=== PATIENT | female | born 1965 | race Caucasian/White ===

== ENCOUNTER 2017-05-30 12:37 | Emergency (ER) | payer SELFPAY ==
[2017-05-30 14:34] LABS: APPEARANCE CLEAR (CLEAR); BILIRUBIN NEGATIVE (NEGATIVE); COLOR YELLOW (YELLOW); GLUCOSE NEGATIVE (NEGATIVE); KETONE NEGATIVE (NEGATIVE); LEUKOCYTE ESTERASE NEGATIVE (NEGATIVE); NITRITE NEGATIVE (NEGATIVE); PROTEIN NEGATIVE (NEGATIVE); UROBILINOGEN NORMAL (NORMAL)
[2017-05-30 14:43] LABS: HCG SERUM NEGATIVE (NEGATIVE)
[2017-05-30 14:46] LABS: BASOPHILS 0.2 % (0-2); EOSINOPHILS 1.1 % (0-7); HEMATOCRIT 41.8 % (36.0-48.0); HEMOGLOBIN 14.6 g/dL (12-16); IMMATURE GRANULOCYTES 0.2 % (0-5); LYMPHOCYTES 24.1 % (15-50); MCH 34.3 pg (26.0-34.0); MCHC 34.9 g/dL (31.0-37.0); MCV 98.1 fL (80.0-100.0); MEAN PLATELET VOLUME 9.6 fL (7.4-10.4); MONOCYTES 4.7 % (2-11); NEUTROPHILS 69.7 % (40-80); RBC 4.26 10x6/uL (4.00-5.40); RDW 11.7 % (11.5-14.5)
[2017-05-30 14:48] LABS: PLATELET COUNT 249 10x3/uL (130-400)
[2017-05-30 14:49] LABS: ALBUMIN 3.9 g/dL (3.4-5.0); ALKALINE PHOSPHATASE 83 U/L (46-116); ALT (SGPT) 33 U/L (10-68); BILIRUBIN - TOTAL 0.62 mg/dL (0.2-1.3); CALC OSMOLALITY 284 mosm/kg (275-300); CALCIUM 8.8 mg/dL (8.5-10.1); CARBON DIOXIDE 22.9 mmol/L (21.0-32.0); CHLORIDE - SERUM 108 mmol/L (98-107); CREATININE - SERUM 0.8 mg/dL (0.6-1.3); GLUCOSE 91 mg/dL (74-106); POTASSIUM - SERUM 3.6 mmol/L (3.5-5.1); PROTEIN - SERUM 7.1 g/dL (6.4-8.2); SODIUM 144 mmol/L (136-145); UREA NITROGEN 7 mg/dL (7-18); eGFR NON AFRICAN AMERICAN 81 mL/min (90-120)
[2017-05-30 14:56] LABS: UDS - AMPHET NEGATIVE QUAL (NEGATIVE); UDS - BARB NEGATIVE QUAL (NEGATIVE); UDS - BENZO NEGATIVE QUAL (NEGATIVE); UDS - COCAINE NEGATIVE QUAL (NEGATIVE); UDS - METH NEGATIVE QUAL (NEGATIVE); UDS - OPIATE NEGATIVE QUAL (NEGATIVE); UDS - PCP NEGATIVE QUAL (NEGATIVE); UDS - THC POSITIVE QUAL (NEGATIVE)
== END 2017-05-30 20:00 | disposition short-term general hospital (02) ==
LOC: D.ER 12:37
PROVIDERS: Emergency Medicine
DX: F41.0 Panic disorder [episodic paroxysmal anxiety] (principal); F17.200 Nicotine dependence, unspecified, uncomplicated

== ENCOUNTER 2017-06-28 17:00 | Emergency (ER) | payer MEDICAID ==
[2017-06-28 18:03] LABS: BASOPHILS 0.3 % (0-2); EOSINOPHILS 2.2 % (0-7); HEMATOCRIT 43.8 % (36.0-48.0); HEMOGLOBIN 15.4 g/dL (12-16); IMMATURE GRANULOCYTES 0.1 % (0-5); LYMPHOCYTES 36.6 % (15-50); MCH 34.1 pg (26.0-34.0); MCHC 35.2 g/dL (31.0-37.0); MCV 96.9 fL (80.0-100.0); MEAN PLATELET VOLUME 9.5 fL (7.4-10.4); MONOCYTES 6.3 % (2-11); NEUTROPHILS 54.5 % (40-80); PLATELET COUNT 216 10x3/uL (130-400); RBC 4.52 10x6/uL (4.00-5.40); RDW 11.4 % (11.5-14.5); WBC 10.1 10x3/uL (4.8-10.8)
[2017-06-28 18:13] LABS: APPEARANCE HAZY (CLEAR); BILIRUBIN NEGATIVE (NEGATIVE); COLOR YELLOW (YELLOW); GLUCOSE NEGATIVE (NEGATIVE); KETONE NEGATIVE (NEGATIVE); NITRITE NEGATIVE (NEGATIVE); PROTEIN NEGATIVE (NEGATIVE); UROBILINOGEN NORMAL (NORMAL)
[2017-06-28 18:20] LABS: ALBUMIN 4.2 g/dL (3.4-5.0); ANION GAP 16.3 mmol/L (8-16); BILIRUBIN - TOTAL 0.67 mg/dL (0.2-1.3); CALCIUM 9.2 mg/dL (8.5-10.1); CREATININE - SERUM 0.9 mg/dL (0.6-1.3); POTASSIUM - SERUM 3.3 mmol/L (3.5-5.1); PROTEIN - SERUM 7.7 g/dL (6.4-8.2)
[2017-06-28 18:21] LABS: EPITHELIAL CELLS 0-5 /hpf (0-5); RED CELLS - URINE 0-5 /hpf (0-5); WHITE CELLS - URINE 0-5 /hpf (0-5)
[2017-06-28 18:22] LABS: BACTERIA FEW /hpf (NONE SEEN)
== END 2017-06-28 20:40 | disposition home or self-care (01) ==
LOC: D.ER 17:00
PROVIDERS: Emergency Medicine
DX: E86.0 Dehydration (principal); R53.1 Weakness; F17.200 Nicotine dependence, unspecified, uncomplicated

== ENCOUNTER → 2018-01-02 16:32 | Outpatient (CLI) | payer MEDICAID | END | disposition home or self-care (01) | LOC: D.MAMMO 09:45 | DX: Z12.31 Encounter for screening mammogram for malignant neoplasm of breast (principal) ==

== ENCOUNTER 2018-05-19 08:00 | Outpatient (CLI) | payer MEDICAID | END 2018-05-19 09:00 | disposition home or self-care (01) | LOC: D.MAMMO 08:00 | DX: R92.8 Other abnormal and inconclusive findings on diagnostic imaging of breast (principal) ==

== ENCOUNTER → 2018-06-26 16:17 | Outpatient (CLI) | payer MEDICAID ==
[~2018-06-26 16:17] MED LIST: LUNESTA2 M1 PO; ZANTAC300 MG PO; ZOLOFT25 MG PO
[2018-07-31 07:52] VITALS: BMI 20.1
== END | disposition home or self-care (01) ==
LOC: D.MAMMO 08:00
DX: R92.2 Inconclusive mammogram (principal)

== ENCOUNTER 2018-07-31 06:45 | Day surgery (SDC) | payer MEDICAID ==
[2018-07-30 17:00] LABS: ANION GAP 17.1 mmol/L (8-16); CALCIUM 8.8 mg/dL (8.5-10.1); CARBON DIOXIDE 25.8 mmol/L (21.0-32.0); CREATININE - SERUM 0.9 mg/dL (0.6-1.3); POTASSIUM - SERUM 3.9 mmol/L (3.5-5.1)
[2018-07-30 17:04] LABS: BASOPHILS 0.3 % (0-2); EOSINOPHILS 3.3 % (0-7); HEMATOCRIT 39.6 % (36.0-48.0); HEMOGLOBIN 13.5 g/dL (12-16); IMMATURE GRANULOCYTES 0.1 % (0-5); LYMPHOCYTES 49.2 % (15-50); MCH 33.8 pg (26.0-34.0); MCHC 34.1 g/dL (31.0-37.0); MEAN PLATELET VOLUME 9.3 fL (7.4-10.4); MONOCYTES 6.5 % (2-11); NEUTROPHILS 40.6 % (40-80); RDW 11.8 % (11.5-14.5); WBC 9.4 10x3/uL (4.8-10.8)
[2018-07-30 17:08] LABS: PLATELET COUNT 297 10x3/uL (130-400)
[~2018-07-31] VITALS: Ht 156.2 cm; Wt 49.0 kg
--- NOTE | ~2018-07-31 | OP ---
PATIENT NAME: SENDY GALINDO MEDICAL RECORD: [id number] :69 LOCATION:D.OPS ADMISSION DATE: SURGEON: CHRISTI TREVINO MD DATE OF OPERATION: 07/31/2018 PREOPERATIVE DIAGNOSES: 1. Right breast microcalcifications. 2. Fibromyalgia. 3. History of cerebrovascular accident. POSTOPERATIVE DIAGNOSES: 1. Right breast microcalcifications. 2. Fibromyalgia. 3. History of cerebrovascular accident. PROCEDURE: Right breast needle localization lumpectomy. SURGEON: Christi Trevino MD REPORT OF PROCEDURE: The patient's right breast was prepped and draped in sterile fashion. The patient had had a needle localization performed preoperatively. A skin incision was made on the right upper outer quadrant of the breast. Electrocautery was then used to dissect through the subcutaneous tissues and the wire was eviscerated through this incision. A core of tissue was then taken around this wire all the way down to the posterior breast overlying the pectoral fascia. Once this was completely excised, then the specimen was marked appropriately and sent off to radiology. A mammographic evaluation showed that the calcifications were present in the specimen along with the intact wire. We inspected the wound bed and any bleeding that was found was treated with electrocautery. We then irrigated out the wound with normal saline. The subcutaneous tissues were reapproximated with interrupted 3-0 Vicryls and the skin was closed with running subcutaneous 5-0 Monocryl. COMPLICATIONS: None. CONDITION: Stable. ANESTHESIA: General endotracheal and local. BLOOD LOSS: Minimal. TRANSINT:[id number] Voice Confirmation ID: [id number] DOCUMENT ID: [id number] CHRISTI TREVINO MD at 1219 CC: YARIEL LARRY MD [id number] DICTATION DATE: 07/31/18 1404 MIXING OPERATOR: 07/31/18 1521 [facility] 07/31/18 [place] [id number]
[2018-07-31 07:52] VITALS: BP 103/55; Ht 156.2 cm; Wt 49.0 kg
[2018-07-31] MEDS ORDERED: NORCO 10-325 TA1 TAB PO (14:09)
== END 2018-07-31 16:25 | disposition home or self-care (01) ==
LOC: D.OPS 06:45 → D.PAN 10:00 → D.OPS 11:30 → D.PAN 11:30 → D.OPS 16:25
PROVIDERS: Surgery
DX: R92.0 Mammographic microcalcification found on diagnostic imaging of breast (principal); M79.7 Fibromyalgia; Z86.73 Personal history of transient ischemic attack (TIA), and cerebral infarction without residual deficits; Z01.812 Encounter for preprocedural laboratory examination

== ENCOUNTER 2018-09-07 09:28 | Inpatient (IN) | payer MEDICAID ==
[~2018-09-07] VITALS: Ht 156.2 cm; Wt 45.3 kg
--- NOTE | ~2018-09-07 | MORECARE ---
CASE MANAGEMENT DISCHARGE SUMMARY PATIENT: SENDY GALINDO UNIT: [id number] ADM DATE: 09/07/18 AGE: 53 : [birth year] SEX: F ROOM/BED: D.2666 AUTHOR: ALE TURNER PHYSICIAN: REFERRING PHYSICIAN: CORENLIA MARIE MD DATE OF SERVICE: 09/10/18 Discharge Plan Patient Name: SENDY GALINDO Facility: [facility]:[place] : 1965 Planned Disposition: Home Anticipated Discharge Date: 09/10/18 Discharge Date: 09/10/2018 Expected LOS: 3 Initial Reviewer: [email or web address] Initial Review Date: 09/10/2018 Generated: 09/10/18 6:35 pm Comments DCP- Discharge Planning Updated by [email or web address]: Bishop López on 09/10/18 4:[address] Patient Name: SENDY GALINDO Encounter No: [id number] : 1965 Primary Insurance: [employer] OPT[employer] [place] Anticipated DC Date: 09-10-2018 Planned Disposition: Home DISCHARGE PLANNING NOTE: CM MET WITH PT IN ROOM TO DISCUSS DISCHARGE PLANNING AND NEEDS. PT REPORTS LIVING AT HOME INDEPENDENTLY WITH HER ADULT DAUGHTER. PT HAS NEBULIZER WITH NO MEDICAL EQUIPMENT PROVIDER PREFERENCE AND NO OUTSIDE SERVICES ASSISTING IN THE HOME. CM DISCUSSED AVAILABILITY OF HOME HEALTH, REHAB SERVICES AND MEDICAL EQUIPMENT. PT DENIES DISCHARGE NEEDS, REPORTS HER DAUGHTER WILL PICK HER UP FOR DISCHARGE HOME. SOLUTION PROFESSIONAL NURSE NOTIFIED. BISHOP LÓPEZ, CASE MANAGEMENT DCPIA - Discharge Planning Initial Assessment Updated by [email or web address]: Bishop López on 09/10/18 5:30 pm * Is the patient Alert and Oriented? Yes * How many steps to enter\exit or inside your home? RAMP * PCP DR. LARRY * Pharmacy [facility] * Preadmission Environment Home with Family * ADLs Independent * Equipment Nebulizer * Other Equipment NO MEDICAL EQUIPMENT PROVIDER PREFERENCE * List name and contact numbers for known caregivers / representatives who currently or will assist patient after discharge: RUSSEL GALINDO, DTR, * Verbal permission to speak to the caregivers and representatives has been obtained from the patient. N/A * Community resources currently utilized None * Please name any agencies selected above. NONE * Additional services required to return to the preadmission environment? No * Can the patient safely return to the preadmission environment? Yes * Has this patient been hospitalized within the prior 30 days at any hospital? No Patient Name: SENDY GALINDO Page [id number] at 1735 All edits/amendments must be made on the electronic document DICTATION DATE: 09/10/181733 METAL PICKLING EQUIPMENT OPERATOR: JOHN 09/10/181733 RPT#: [id number] DC DATE:09/10/18 STATUS: DIS IN [facility] [address] [place] [address] END OF REPORT
[~2018-09-07 09:28] MED LIST changes: +NORCO 10-325 TA1 TAB PO
[2018-09-07 10:09] LABS: BASOPHILS 0.3 % (0-2); EOSINOPHILS 2.3 % (0-7); HEMATOCRIT 36.7 % (36.0-48.0); HEMOGLOBIN 12.3 g/dL (12-16); LYMPHOCYTES 47.1 % (15-50); MCHC 33.5 g/dL (31.0-37.0); MCV 98.4 fL (80.0-100.0); MEAN PLATELET VOLUME 9.3 fL (7.4-10.4); MONOCYTES 4.4 % (2-11); NEUTROPHILS 45.9 % (40-80); PLATELET COUNT 312 10x3/uL (130-400); RBC 3.73 10x6/uL (4.00-5.40); RDW 11.8 % (11.5-14.5); WBC 6.2 10x3/uL (4.8-10.8)
[2018-09-07 10:22] LABS: ALBUMIN 3.3 g/dL (3.4-5.0); ANION GAP 17.4 mmol/L (8-16); BILIRUBIN - TOTAL 0.35 mg/dL (0.2-1.3); CALCIUM 8.8 mg/dL (8.5-10.1); CREATININE - SERUM 0.9 mg/dL (0.6-1.3); POTASSIUM - SERUM 3.4 mmol/L (3.5-5.1); PROTEIN - SERUM 7.5 g/dL (6.4-8.2)
[2018-09-07 10:35] LABS: APPEARANCE CLEAR (CLEAR); BILIRUBIN NEGATIVE (NEGATIVE); COLOR YELLOW (YELLOW); GLUCOSE NEGATIVE (NEGATIVE); KETONE NEGATIVE (NEGATIVE); NITRITE NEGATIVE (NEGATIVE); PROTEIN NEGATIVE (NEGATIVE); SPECIFIC GRAVITY 1.025 (1.005-1.020); UROBILINOGEN NORMAL (NORMAL)
[2018-09-07 10:36] LABS: BACTERIA FEW /hpf (NONE SEEN); EPITHELIAL CELLS 0-5 /hpf (0-5); RED CELLS - URINE 0-5 /hpf (0-5); WHITE CELLS - URINE 0-5 /hpf (0-5)
[2018-09-07 13:30] VITALS: BP 108/62; Ht 156.2 cm; Wt 45.3 kg
[2018-09-07 17:00] VITALS: BP 88/51
[2018-09-08] VITALS: BP 100/52
[2018-09-08 05:51] VITALS: BP 103/65
[2018-09-08 06:02] LABS: BASOPHILS 0.4 % (0-2); EOSINOPHILS 2.8 % (0-7); HEMATOCRIT 34.7 % (36.0-48.0); HEMOGLOBIN 11.4 g/dL (12-16); IMMATURE GRANULOCYTES 0.2 % (0-5); LYMPHOCYTES 46.7 % (15-50); MCH 32.8 pg (26.0-34.0); MCHC 32.9 g/dL (31.0-37.0); MCV 99.7 fL (80.0-100.0); MEAN PLATELET VOLUME 9.5 fL (7.4-10.4); MONOCYTES 7.5 % (2-11); NEUTROPHILS 42.4 % (40-80); PLATELET COUNT 330 10x3/uL (130-400); RBC 3.48 10x6/uL (4.00-5.40); WBC 5.1 10x3/uL (4.8-10.8)
[2018-09-08 06:21] LABS: ALBUMIN 3.1 g/dL (3.4-5.0); ALKALINE PHOSPHATASE 64 U/L (46-116); ALT (SGPT) 9 U/L (10-68); BILIRUBIN - TOTAL 0.28 mg/dL (0.2-1.3); CALC OSMOLALITY 281 mosm/kg (275-300); CALCIUM 8.9 mg/dL (8.5-10.1); CARBON DIOXIDE 24.5 mmol/L (21.0-32.0); CHLORIDE - SERUM 108 mmol/L (98-107); CREATININE - SERUM 0.8 mg/dL (0.6-1.3); GLUCOSE 88 mg/dL (74-106); MAGNESIUM - SERUM 2.1 mg/dL (1.8-2.4); POTASSIUM - SERUM 4.2 mmol/L (3.5-5.1); PROTEIN - SERUM 6.8 g/dL (6.4-8.2); SODIUM 142 mmol/L (136-145); UREA NITROGEN 12 mg/dL (7-18); eGFR NON AFRICAN AMERICAN 80 mL/min (90-120)
[2018-09-08 08:58] VITALS: BP 89/46
[2018-09-08 11:39] VITALS: BP 94/43
[2018-09-08 14:18] LABS: % SATURATION 21 % (15-55); IRON 49 ug/dl (35-150); TOTAL IRON BIND CAPACITY 231 ug/dl (260-445); UNSAT IRON BIND CAPACITY 182 ug/dl (150-375)
[2018-09-08 15:33] VITALS: BP 86/41
[2018-09-08 20:00] VITALS: BP 94/52
[2018-09-09] VITALS: BP 97/46
[2018-09-09 05:37] LABS: BASOPHILS 0 % (0-2); EOSINOPHILS 0 % (0-7); HEMATOCRIT 34.5 % (36.0-48.0); HEMOGLOBIN 11.4 g/dL (12-16); IMMATURE GRANULOCYTES 0.2 % (0-5); LYMPHOCYTES 14.8 % (15-50); MCH 32.9 pg (26.0-34.0); MCV 99.4 fL (80.0-100.0); MEAN PLATELET VOLUME 9.7 fL (7.4-10.4); PLATELET COUNT 335 10x3/uL (130-400); RBC 3.47 10x6/uL (4.00-5.40); RDW 12.1 % (11.5-14.5)
[2018-09-09 06:04] LABS: ALBUMIN 3.2 g/dL (3.4-5.0); ALKALINE PHOSPHATASE 65 U/L (46-116); ALT (SGPT) 10 U/L (10-68); BILIRUBIN - TOTAL 0.18 mg/dL (0.2-1.3); CALCIUM 9.3 mg/dL (8.5-10.1); CARBON DIOXIDE 21.3 mmol/L (21.0-32.0); CHLORIDE - SERUM 107 mmol/L (98-107); CREATININE - SERUM 0.8 mg/dL (0.6-1.3); MAGNESIUM - SERUM 1.9 mg/dL (1.8-2.4); POTASSIUM - SERUM 4.4 mmol/L (3.5-5.1); PROTEIN - SERUM 7.3 g/dL (6.4-8.2); SODIUM 141 mmol/L (136-145); eGFR NON AFRICAN AMERICAN 80 mL/min (90-120)
[2018-09-09 06:22] LABS: CALC OSMOLALITY 285 mosm/kg (275-300); GLUCOSE 144 mg/dL (74-106); UREA NITROGEN 17 mg/dL (7-18)
[2018-09-09 08:13] VITALS: BP 96/44
[2018-09-09 11:57] VITALS: BP 107/44
[2018-09-09 16:16] VITALS: BP 100/48
[2018-09-09 21:09] VITALS: BP 99/49
[2018-09-10 04:00] VITALS: BP 102/48
[2018-09-10 05:25] LABS: BASOPHILS 0 % (0-2); EOSINOPHILS 0 % (0-7); HEMATOCRIT 34.9 % (36.0-48.0); HEMOGLOBIN 11.4 g/dL (12-16); IMMATURE GRANULOCYTES 0.4 % (0-5); LYMPHOCYTES 8.2 % (15-50); MCH 32.6 pg (26.0-34.0); MCHC 32.7 g/dL (31.0-37.0); MCV 99.7 fL (80.0-100.0); MEAN PLATELET VOLUME 9.5 fL (7.4-10.4); MONOCYTES 2.5 % (2-11); NEUTROPHILS 88.9 % (40-80); PLATELET COUNT 376 10x3/uL (130-400); RDW 12.2 % (11.5-14.5)
[2018-09-10 05:39] LABS: WBC 16.6 10x3/uL (4.8-10.8)
[2018-09-10 05:42] LABS: ALBUMIN 3.4 g/dL (3.4-5.0); ALKALINE PHOSPHATASE 65 U/L (46-116); ALT (SGPT) 11 U/L (10-68); BILIRUBIN - TOTAL 0.39 mg/dL (0.2-1.3); CALC OSMOLALITY 286 mosm/kg (275-300); CALCIUM 9.5 mg/dL (8.5-10.1); CARBON DIOXIDE 22.8 mmol/L (21.0-32.0); CHLORIDE - SERUM 107 mmol/L (98-107); CREATININE - SERUM 0.8 mg/dL (0.6-1.3); GLUCOSE 121 mg/dL (74-106); MAGNESIUM - SERUM 2.1 mg/dL (1.8-2.4); POTASSIUM - SERUM 4.9 mmol/L (3.5-5.1); PROTEIN - SERUM 7.6 g/dL (6.4-8.2); SODIUM 142 mmol/L (136-145); UREA NITROGEN 21 mg/dL (7-18); eGFR NON AFRICAN AMERICAN 80 mL/min (90-120)
[2018-09-10] MEDS ORDERED: OMNICEF300 MG PO (08:38)
[2018-09-10] MEDS ORDERED: ZITHROMAX500 MG PO (08:38)
[2018-09-10] MEDS ORDERED: VENTOLIN HFA18 GM INH (08:39)
[2018-09-10] MEDS ORDERED: PROTONIX40 MG PO (08:39)
[2018-09-10] MEDS ORDERED: STERAPRED DS 1010 MG PO (08:40)
[2018-09-10 09:00] VITALS: BP 92/54
== END 2018-09-10 11:07 | disposition home or self-care (01) | DRG 194 ==
LOC: D.ER 09:28 → D.EDHOLD 11:11 → D.M2 11:11
PROVIDERS: Emergency Medicine; Family Medicine Adult Medicine; Internal Medicine Nephrology
DX: J18.1 Lobar pneumonia, unspecified organism (principal); F17.213 Nicotine dependence, cigarettes, with withdrawal; D64.9 Anemia, unspecified; E87.6 Hypokalemia; F41.9 Anxiety disorder, unspecified; F32.9 Major depressive disorder, single episode, unspecified

== ENCOUNTER 2019-03-02 22:00 | Emergency (ER) | payer MEDICAID ==
[~2019-03-02 22:00] MED LIST changes: +OMNICEF300 MG PO; +PROTONIX40 MG PO; +STERAPRED DS 1010 MG PO; +VENTOLIN HFA18 GM INH; +ZITHROMAX500 MG PO
[2019-03-02 22:02] VITALS: BMI 20.3
[2019-03-02] MEDS ORDERED: KLONOPIN1 MG PO (22:14)
[2019-03-02] MEDS ORDERED: REMERON15 MG PO (22:14)
[2019-03-02] MEDS ORDERED: ZOLOFT100 MG PO (22:14)
[2019-03-02] MEDS ORDERED: VALTREX500 MG PO (22:15)
[2019-03-02 22:37] LABS: BASOPHILS 0.4 % (0-2); EOSINOPHILS 2.5 % (0-7); HEMATOCRIT 38.5 % (36.0-48.0); HEMOGLOBIN 13.1 g/dL (12-16); IMMATURE GRANULOCYTES 0.1 % (0-5); LYMPHOCYTES 43.9 % (15-50); MCH 33.2 pg (26.0-34.0); MCV 97.7 fL (80.0-100.0); MEAN PLATELET VOLUME 9.2 fL (7.4-10.4); MONOCYTES 5.2 % (2-11); NEUTROPHILS 47.9 % (40-80); RBC 3.94 10x6/uL (4.00-5.40); WBC 8.1 10x3/uL (4.8-10.8)
[2019-03-02 22:52] LABS: APTT 29.5 SECONDS (22.8-39.4); INR 1.07 (0.85-1.17); PROTIME 13.4 SECONDS (11.6-15.0)
[2019-03-02 22:55] LABS: PLATELET COUNT 272 10x3/uL (130-400)
[2019-03-02 23:08] LABS: ALBUMIN 3.7 g/dL (3.4-5.0); ALKALINE PHOSPHATASE 101 U/L (46-116); ALT (SGPT) 19 U/L (10-68); BILIRUBIN - TOTAL 0.32 mg/dL (0.2-1.3); CALC OSMOLALITY 276 mosm/kg (275-300); CALCIUM 8.8 mg/dL (8.5-10.1); CARBON DIOXIDE 26.9 mmol/L (21.0-32.0); CHLORIDE - SERUM 106 mmol/L (98-107); CREATININE - SERUM 0.9 mg/dL (0.6-1.3); GLUCOSE 102 mg/dL (74-106); POTASSIUM - SERUM 3.6 mmol/L (3.5-5.1); PROTEIN - SERUM 7.4 g/dL (6.4-8.2); SODIUM 139 mmol/L (136-145); UREA NITROGEN 11 mg/dL (7-18); eGFR NON AFRICAN AMERICAN 70 mL/min (90-120)
[2019-03-02 23:19] LABS: CKMB 0.3 U/L (0.0-3.6); CREATINE KINASE 54 UL (21-215); MAGNESIUM - SERUM 2.1 mg/dL (1.8-2.4); TROPONIN-I < 0.017 ng/mL (0.000-0.060)
[2019-03-03 00:17] LABS: C-REACTIVE PROTEIN 0.5 mg/dL (0.0-0.9); THYROID STIMULATING HORMONE 3.09 uIU/mL (0.36-3.74)
[2019-03-03 01:12] VITALS: BP 96/62
== END 2019-03-03 01:12 | disposition home or self-care (01) ==
LOC: D.ER 22:00
PROVIDERS: Family Medicine
DX: R53.1 Weakness (principal); M25.532 Pain in left wrist; M25.531 Pain in right wrist; R53.81 Other malaise

== ENCOUNTER 2019-03-08 15:43 | Observation (INO) | payer MEDICAID ==
[~2019-03-08] VITALS: Ht 156.2 cm; Wt 47.2 kg
[2019-03-08] VITALS (8 sets, daily range): BP systolic 90–123; BP diastolic 46–64; BMI 19.4
[~2019-03-08 15:43] MED LIST changes: +KLONOPIN1 MG PO; +REMERON15 MG PO; +VALTREX500 MG PO; +ZOLOFT100 MG PO
--- NOTE | 2019-03-08 15:52 | NUR ---
POSION CONTROL NOTIFIED AT 5252. INSTRUCTED TO MONITOR PT AIRWAY, VITAL SIGNS,
--- NOTE | 2019-03-08 16:12 | NUR ---
SCREENER AWARE OF PT.
--- NOTE | 2019-03-08 16:15 | NUR ---
DR. ALVAREZ AND 1:1 SITTER OBSERVATION ORDERED. SITTER AT BEDSIDE. NOTIFIED CHARGE NURSE AND ATTENDING IN REGARDS TO ASSESSMENT FINDINGS. RESOURCES GIVEN TO PT AND SAFETY PLAN INITIATED.
[2019-03-08 16:40] LABS: BASOPHILS 0.3 % (0-2); EOSINOPHILS 2.6 % (0-7); HEMATOCRIT 37.8 % (36.0-48.0); HEMOGLOBIN 12.9 g/dL (12-16); IMMATURE GRANULOCYTES 0.3 % (0-5); MCH 33.3 pg (26.0-34.0); MCHC 34.1 g/dL (31.0-37.0); MCV 97.7 fL (80.0-100.0); MEAN PLATELET VOLUME 9.3 fL (7.4-10.4); MONOCYTES 5.6 % (2-11); NEUTROPHILS 48.2 % (40-80); PLATELET COUNT 278 10x3/uL (130-400); RBC 3.87 10x6/uL (4.00-5.40); RDW 12.2 % (11.5-14.5); WBC 9.4 10x3/uL (4.8-10.8)
[2019-03-08 16:46] LABS: UDS - AMPHET NEGATIVE QUAL (NEGATIVE); UDS - BARB NEGATIVE QUAL (NEGATIVE); UDS - BENZO NEGATIVE QUAL (NEGATIVE); UDS - COCAINE NEGATIVE QUAL (NEGATIVE); UDS - OPIATE NEGATIVE QUAL (NEGATIVE); UDS - PCP NEGATIVE QUAL (NEGATIVE); UDS - THC POSITIVE QUAL (NEGATIVE)
[2019-03-08 16:54] LABS: ALBUMIN 3.7 g/dL (3.4-5.0); ALKALINE PHOSPHATASE 97 U/L (46-116); ALT (SGPT) 20 U/L (10-68); BILIRUBIN - TOTAL 0.29 mg/dL (0.2-1.3); CALC OSMOLALITY 281 mosm/kg (275-300); CALCIUM 8.7 mg/dL (8.5-10.1); CARBON DIOXIDE 25.1 mmol/L (21.0-32.0); CHLORIDE - SERUM 109 mmol/L (98-107); CREATININE - SERUM 0.7 mg/dL (0.6-1.3); PROTEIN - SERUM 7.7 g/dL (6.4-8.2); SODIUM 144 mmol/L (136-145); UREA NITROGEN 7 mg/dL (7-18); eGFR NON AFRICAN AMERICAN > 90 mL/min (90-120)
[2019-03-08 16:58] LABS: GLUCOSE 44 mg/dL (74-106)
--- NOTE | 2019-03-08 16:58 | NUR ---
CRITICAL GLUCOSE CALLED BY SAND BUFFER, RESULT OF 44. NOTIFIED EDP AT THIS TIME.
[2019-03-08 17:00] LABS: APPEARANCE CLEAR (CLEAR); COLOR STRAW (YELLOW); SPECIFIC GRAVITY 1.005 (1.005-1.020)
--- NOTE | 2019-03-08 17:00 | NUR ---
PATIENT GIVEN SANDWICH TRAY AND 24 OUNCES OF OJ. SHE ATE ALL OF FOOD GIVEN
[2019-03-08 17:01] LABS: BILIRUBIN NEGATIVE (NEGATIVE); GLUCOSE NEGATIVE (NEGATIVE); KETONE NEGATIVE (NEGATIVE); NITRITE NEGATIVE (NEGATIVE); PROTEIN NEGATIVE (NEGATIVE); UROBILINOGEN NORMAL (NORMAL)
--- NOTE | 2019-03-08 17:23 | NUR ---
RECEIVED REPORT FROM SILVIA YANEZ IN SBAR FORMAT.
--- NOTE | 2019-03-08 18:01 | NUR ---
RECEIVED A CALL FROM [employer]. GAVE HIM AN UPDATE.
--- NOTE | 2019-03-08 18:15 | NUR ---
POC FSBS 93
--- NOTE | 2019-03-08 18:33 | NUR ---
PATIENT SLEEPING, AROUSES TO VERBAL STIMULI. BLANKET GIVEN. WILL CONTINUE TO MONITOR.
--- NOTE | 2019-03-08 19:18 | NUR ---
PT ALERT AND ORIENTED.. STATES TOOK 7 LUNESTA ABOUT 45 MINUTES STRAP MAKING MACHINE OPERATOR. [facility] IS FEELING FINE NOW. SPOKE TO Konrad REYNOSO. [facility] POISON CONTROL STATED TO MONITOR FOR 4 HOURS POST INGESTION.
--- NOTE | 2019-03-08 20:37 | NUR ---
RESTING QUIETLY. NO CHANGE IN CONDITION.
--- NOTE | 2019-03-08 22:11 | NUR ---
WILL HOLD KLONOPIN SINCE PATIENT IS ASLEEP.
--- NOTE | 2019-03-08 22:45 | NUR ---
Received patient to 2310 via wheelchair with sitter at bedside, placed in bed and connected to monitor. Patient AO x4, answers appropriately and follows instructions. Patient slightly withdrawn with reddened eyes, states recent family problems caused increased anxiety leading to over medication. S1/S2 noted NSR on telemetry with HR 67, rythmic and regular. Breathing is even/unlabored on room air with O2 sat 96%, lung sounds clear throughout. Abdomen is flat/soft with bowel sounds active x4, non-tender. Patient ambulates self without assist, gait is upright/steady. All pulses palpable with cap refill < 3 sec, skin warm/dry. States chronic back pain 3/, repositioned with slight stated relief. Denies further needs at this time, see flowsheet for details. All VSS and will continue to monitor.
[2019-03-09] VITALS (9 sets, daily range): BP systolic 82–120; BP diastolic 39–90; Ht 156.2 cm; Wt 47.2 kg
--- NOTE | 2019-03-09 03:00 | NUR ---
PT RESTING WITH EYES CLOSED. EASILY ROUSED AND ALERT. ORIENTED X4. SPEECH CLEAR AND APPROPRIATE. REASSESSMENT COMPLETED PER FLOW SHEET WITH NO CHANGES OR ACUTE DISTRESS OBSERVED. MONITORS CONNECTED TO PATIENT WITH ALARMS SET. VSS
--- NOTE | 2019-03-09 05:00 | NUR ---
RESTING WITH EYES CLOSED. EASILY ROUSED AND ALERT. VSS
--- NOTE | 2019-03-09 07:15 | NUR ---
REPORT RECIEVED, SHIFT ASSESSMENT COMPLETE, PT IS ALERT AND ORIENTED, DENIES ANY SUICIDAL THOUGHTS OR PLANS, DENIES HAVING SUICIDAL THOUGHTS LAST NIGHT, ON RA WITH 97% O2 SAT. ALL PPP, VSS, CALL LIGHT IN REACH
--- NOTE | 2019-03-09 07:44 | NUR ---
RESTING QUIETLY IN BED, EYES CLOSED, AROUSES TO VERBAL STIMULI, STATES THAT SHE GOT OVERWHELMED YESTERDAY WITH LIFE'S PROBLEMS AND TOOK SOME "PILLS". HOWEVER, PATIENT DENIES THE DESIRE TO END HER LIFE. STATES THAT SHE IS ALSO IN CONSTANT PAIN, BUT SHE WOULD NOT WANT TO END HER LIFE BECAUSE SHE HAS GRANDCHILDREN THAT DEPEND ON HER. 1:[address] PATIENT'S CASE DISCUSSED WITH DR ALVAREZ.
--- NOTE | 2019-03-09 09:00 | NUR ---
PT AGITATED AT THIS TIME, PULLING OFF LINES AND B/P CUFF, WANTING TO LEAVE AMA, PT WAS ABLE TO BE CALMED DOWN AT THIS TIME,
--- NOTE | 2019-03-09 09:00 | NUR ---
PATIENT IS AGITATED AND ANXIOUS. PATIENT STATED PAIN OF 10/10. TYLENOL OFFERED. PATIENT REFUSED. VITAL SIGNS ARE STABLE. SITTER AT BED SIDE. CALL LIGHT WITHIN REACH. BED LOW AND LOCKED.
[2019-03-09 09:33] LABS: CALCIUM 8.9 mg/dL (8.5-10.1); CARBON DIOXIDE 27.2 mmol/L (21.0-32.0); CHLORIDE - SERUM 108 mmol/L (98-107); CREATININE - SERUM 0.8 mg/dL (0.6-1.3); SODIUM 143 mmol/L (136-145); eGFR NON AFRICAN AMERICAN 80 mL/min (90-120)
--- NOTE | 2019-03-09 09:33 | NUR ---
PATIENT THRASHING ABOUT IN BED, YELLING ALOUD, TEARFUL, NURSE NOTIFIED.
[2019-03-09 09:34] LABS: CALC OSMOLALITY 283 mosm/kg (275-300); GLUCOSE 90 mg/dL (74-106); POTASSIUM - SERUM 4.2 mmol/L (3.5-5.1); UREA NITROGEN 10 mg/dL (7-18)
[2019-03-09 09:41] LABS: BASOPHILS 0.3 % (0-2); EOSINOPHILS 3.2 % (0-7); HEMATOCRIT 36.3 % (36.0-48.0); HEMOGLOBIN 12.1 g/dL (12-16); LYMPHOCYTES 34.9 % (15-50); MCH 32.7 pg (26.0-34.0); MCHC 33.3 g/dL (31.0-37.0); MCV 98.1 fL (80.0-100.0); MEAN PLATELET VOLUME 9.7 fL (7.4-10.4); MONOCYTES 6.6 % (2-11); PLATELET COUNT 270 10x3/uL (130-400); RDW 12.4 % (11.5-14.5); WBC 7.5 10x3/uL (4.8-10.8)
--- NOTE | 2019-03-09 11:15 | NUR ---
PT AWAKE AT THIS TIME, LUNCH TRAY GIVEN
--- NOTE | 2019-03-09 12:18 | MORECARE ---
CASE MANAGEMENT DISCHARGE SUMMARY PATIENT: SENDY GALINDO UNIT: [id number] ADM DATE: 03/08/19 AGE: 53 : [birth year] SEX: F ROOM/BED: D.[facility] AUTHOR: ALE TURNER PHYSICIAN: REFERRING PHYSICIAN: RHETT RENEE DO DATE OF SERVICE: 03/09/19 Discharge Plan Patient Name: SENDY GALINDO [facility] [facility] 1965 Planned Disposition: Anticipated Discharge Date: Discharge Date: Expected LOS: Initial Reviewer: [email or web address] Initial Review Date: 03/08/2019 Generated: 03/09/19 1:18 pm Patient Name: SENDY GALINDO Page [phone] at 1218 All edits/amendments must be made on the electronic document DICTATION DATE: 03/09/191216 LEAN SIX SIGMA BLACK BELT: JOHN 03/09/197 RPT#: [id number] DC DATE: STATUS: ADM IN [facility] [address] [place] [address] END OF REPORT
--- NOTE | 2019-03-09 13:22 | NUR ---
AT BEDSIDE, UPDATE GIVEN
--- NOTE | 2019-03-09 15:30 | NUR ---
DR. ALVAREZ AT BEDSIDE, UPDATE GIVEN
--- NOTE | 2019-03-09 15:30 | NUR ---
1:1 EDYTA DC'Julio Cesar PER DR ALVAREZ.
--- NOTE | 2019-03-09 16:23 | NUR ---
PT DC'D AT THIS TIME WITH FAMILY MEMBER
--- NOTE | 2019-03-09 16:43 | MORECARE ---
CASE MANAGEMENT DISCHARGE SUMMARY PATIENT: SENDY GALINDO UNIT: [id number] ADM DATE: 03/08/19 AGE: 53 : 69 SEX: F ROOM/BED: D.2311 AUTHOR: ALE TURNER PHYSICIAN: REFERRING PHYSICIAN: RHTET RENEE DO DATE OF SERVICE: 03/09/19 Discharge Plan Patient Name: SENDY GALINDO Facility: [facility]:[place] : 1965 Planned Disposition: Home Anticipated Discharge Date: Discharge Date: 03/09/2019 Expected LOS: Initial Reviewer: [email or web address] Initial Review Date: 03/08/2019 Generated: 03/09/19 5:43 pm Comments DCP- Discharge Planning Updated by [email or web address]: Julissa Davis on 03/09/19 3:[address] Patient Name: SENDY GALINDO Admission Status: ER Accout number: [id number] Admission Date: 03-08-2019 : 1965 Admission Diagnosis: Attending: RHETT RENEE Current LOS: 1 Anticipated DC Date: Planned Disposition: Home Primary Insurance: [employer] [facility] [employer] [place] Discharge Planning Comments: CM received notification that patient was cleared for discharge. Patient's daughter will be here to pick her up. Patient denies any discharge needs at this time. CM will continue to follow and assist as needed with discharge planning / needs. Olive Grower: Julissa Davis Last DP export: 03/09/19 11:18 a Patient Name: SENDY GALINDO Page [phone] at 1643 All edits/amendments must be made on the electronic document DICTATION DATE: 03/09/191641 OIL PIPE INSPECTOR HELPER: JOHN 03/09/191641 RPT#: [id number] DC DATE:03/09/19 STATUS: DIS IN [facility] [address] [place] [address] END OF REPORT
--- NOTE | 2019-03-10 13:17 | CN ---
PATIENT NAME:SENDY GALINDO MEDICAL RECORD: [id number] : [birth year] LOCATION:MARVIN.2311 ADMIT DATE: 03/08/19 ACCOUNT: [id number] CONSULTING PHYSICIAN: FAB ALVAREZ MD REFERRING PHYSICIAN: RHETT RENEE DO DATE OF CONSULTATION: 03/09/2019 IDENTIFYING DATA: The patient is 53 years old and she is admitted to the hospital secondary to an overdose. CHIEF COMPLAINT: Argument with daughter. HISTORY OF PRESENT ILLNESS: The patient had an argument with her daughter. Apparently, they have an agreement. The patient will watch the grandchildren and the daughter is supposed to buy her cigarettes. The daughter refused to buy her cigarettes, an argument ensued, and the patient took a handful of Lunesta. She says she did this in an effort to calm down and not to kill herself. She denies neurovegetative depressive symptoms. ASSESSMENT: 1. Major depression by history. 2. Personality disorder, cluster B. PLAN: At this time, the patient is not acutely dangerous and can reasonably be transitioned out of the hospital. Follow up should be with her outpatient counselor, which she sees on a regular basis. TRANSINT:[id number] Voice Confirmation ID: [id number] DOCUMENT ID: [id number] FAB ALVAREZ MD at 1317 CC: [id number] DICTATION DATE: 03/09/19 1553 WINDING RACK OPERATOR: 03/09/19 1908 DIS IN 03/09/19 [facility] [address] [place] [address]
== END 2019-03-09 16:25 | disposition home or self-care (01) ==
LOC: D.ER 15:43 → OBSVTIME 22:10 → D.ICU 22:10
PROVIDERS: Family Medicine; Internal Medicine Nephrology; ADMIT Family Medicine; ATTEND Family Medicine
DX: T42.6X2A Poisoning by other antiepileptic and sedative-hypnotic drugs, intentional self-harm, initial encounter (principal); E87.6 Hypokalemia; E16.2 Hypoglycemia, unspecified; R63.0 Anorexia; F41.8 Other specified anxiety disorders; M79.7 Fibromyalgia; K25.9 Gastric ulcer, unspecified as acute or chronic, without hemorrhage or perforation; I69.354 Hemiplegia and hemiparesis following cerebral infarction affecting left non-dominant side; F17.203 Nicotine dependence unspecified, with withdrawal

== ENCOUNTER 2020-05-20 20:55 | Emergency (ER) | payer SELFPAY ==
[~2020-05-20] VITALS: Ht 156.2 cm; Wt 45.4 kg
[2020-05-20 21:57] VITALS: Ht 156.2 cm; Wt 45.4 kg
[2020-05-20 22:28] LABS: CALC OSMOLALITY 279 mosm/kg (275-300); CALCIUM 9.4 mg/dL (8.5-10.1); CARBON DIOXIDE 27.7 mmol/L (21.0-32.0); CHLORIDE - SERUM 105 mmol/L (98-107); CREATININE - SERUM 1.1 mg/dL (0.6-1.3); GLUCOSE 99 mg/dL (74-106); POTASSIUM - SERUM 3.5 mmol/L (3.5-5.1); SODIUM 141 mmol/L (136-145); UREA NITROGEN 11 mg/dL (7-18); eGFR NON AFRICAN AMERICAN 55 mL/min (90-120)
[2020-05-20 22:32] LABS: HEMATOCRIT 42.1 % (36.0-48.0); HEMOGLOBIN 14.3 g/dL (12-16); MCH 33.6 pg (26.0-34.0); MCV 98.8 fL (80.0-100.0); MEAN PLATELET VOLUME 9.3 fL (7.4-10.4); RBC 4.26 10x6/uL (4.00-5.40); RDW 11.9 % (11.5-14.5); WBC 9.2 10x3/uL (4.8-10.8)
[2020-05-20 22:34] LABS: PLATELET COUNT 342 10x3/uL (130-400)
[2020-05-20 22:39] LABS: ALKALINE PHOSPHATASE 109 U/L (30-120); ALT (SGPT) 14 U/L (10-68); BILIRUBIN - TOTAL 0.21 mg/dL (0.2-1.3); CKMB 0.2 U/L (0.0-3.6); CREATINE KINASE 48 UL (21-215); PRO BNP 66 pg/mL (0-125); PROTEIN - SERUM 7.6 g/dL (6.4-8.2)
[2020-05-20 22:45] LABS: TROPONIN-I < 0.017 ng/mL (0.000-0.060)
[2020-05-20 22:54] LABS: INR 0.93 (0.85-1.17); PROTIME 12.5 SECONDS (11.6-15.0)
[2020-05-20 22:55] LABS: APTT 28.7 SECONDS (22.8-39.4)
[2020-05-20 22:57] LABS: EOSINOPHILS 4 % (0-7); LYMPHOCYTES 53 % (15-50); MONOCYTES 5 % (2-11); NEUTROPHILS 38 % (40-80); PLATELET ESTIMATE NORMAL
[2020-05-21 01:24] LABS: C-REACTIVE PROTEIN 0.4 mg/dL (0.0-0.9)
[2020-05-21] MEDS ORDERED: STERAPRED DS 1010 MG PO (02:57)
[2020-05-21 04:00] VITALS: BP 132/78
== END 2020-05-21 03:31 | disposition home or self-care (01) ==
LOC: D.ER 20:55
PROVIDERS: Family Medicine
DX: J44.1 Chronic obstructive pulmonary disease with (acute) exacerbation (principal); R05 Cough; R06.02 Shortness of breath; Z86.73 Personal history of transient ischemic attack (TIA), and cerebral infarction without residual deficits; Z72.0 Tobacco use

== ENCOUNTER 2021-02-09 13:00 | Outpatient (CLI) | payer OTHER ==
[2020-05-20 21:57] VITALS: BMI 19.3
== END 2021-02-09 14:00 | disposition home or self-care (01) ==
LOC: D.MAMMO 13:00
PROVIDERS: ATTEND Family Medicine
DX: R92.8 Other abnormal and inconclusive findings on diagnostic imaging of breast (principal)